=== PATIENT | female | born 1975 | race Hispanic/Latino ===

== ENCOUNTER 2023-02-23 12:16 | Emergency (ER) | payer SELFPAY ==
[2023-02-23] MEDS ORDERED: Lidocaine 1% (PF) 30 ML VIAL ONE (13:45)
[2023-02-23] MEDS ORDERED: HYDROcodone/Acetaminophen 5/325 mg Tablet ONE (13:57)
[2023-02-23] MEDS ORDERED: Bacitracin 1 PK ONE (14:39)
== END 2023-02-23 14:49 | disposition home or self-care (01) ==
LOC: NAV ERS 12:16
DX: S41.111A Laceration without foreign body of right upper arm, initial encounter (principal); S00.83XA Contusion of other part of head, initial encounter; S23.41XA Sprain of ribs, initial encounter; S90.811A Abrasion, right foot, initial encounter; W55.32XA Struck by other hoof stock, initial encounter
CPT/HCPCS: 12001; 70450; J2001